=== PATIENT | female | born 1995 | race Caucasian/White ===

== ENCOUNTER → 2020-03-16 15:01 | Outpatient (CLI) | payer BC, SELFPAY ==
[2020-03-18 08:18] LABS: Hep A Ab, IgM Negative (Negative); Hepatitis B Core Antibody IgM Negative (Negative); Hepatitis B Surface Antigen Negative (Negative)
[2020-03-18 11:47] LABS: HIV Screen 4th Generation wRfx Non Reactive (Non Reactive); Hepatitis C Antibody <0.1 s/co ratio (0.0-0.9); Rapid Plasma Reagin Ab Titer Non Reactive (NonRea<1:1)
== END ==
PROVIDERS: Visit Provider Obstetrics & Gynecology
DX: Z01.419 Encounter for gynecological examination (general) (routine) without abnormal findings (principal)
CPT/HCPCS: 36415; 80074; 86592; 86703; G0432

== ENCOUNTER 2020-05-01 18:27 | Emergency (ER) | payer BC, SELFPAY ==
[2020-05-01 18:28] VITALS: BP 113/69; PULSE 67; RESP 16; TEMP 36.9; O2SAT 98; BMI 22.3
--- NOTE | 2020-05-01 18:40 | HMH.EDGENADL ---
ED Disposition Clinical Impression: Kidney stone on left side Disposition: Home, Self-Care Condition on Discharge: Good Additional Instructions: Take meds as prescribed. Use ibuprofen always with food. Drink plenty of clear fluids. Use urine strainer. Immediate return if fever/chills, intractable nausea/vomiting, worsening pain, generalized malaise, or other new concerning symptoms. Prescriptions: Tamsulosin HCl [Flomax 0.4mg capsule] 0.4 mg PO HS 7 Days #7 cap Transmission Status: Pending to [facility] # Ondansetron [Zofran 4mg ODT] 4 mg PO TIDP PRN #12 tab PRN Reason: Nausea Transmission Status: Pending to [facility] # Referrals: Ghada Islas [Primary Care Provider] - - Critical Care Critical Care Time: No Attestation: On 05/01/20, the high probability of a clinically significant, sudden or life threatening deterioration of the following system(s) required my full and direct attention, intervention and personal management. The time I documented below is in addition to time spent performing reported procedures but includes the following listed in this critical care notation. Medical Decision Making - Medical Records Medical records reviewed: Yes: I reviewed the patient's medical records. - Ashok Inquiry Pt receiving controlled substance: No Vital Signs: 05/01/20 18:28 Temperature 98.5 F Temperature Source Oral Pulse Rate [Radial] 67 Respiratory Rate 16 Blood Pressure [Right Arm] 113/69 Blood Pressure Mean [Right Arm] 83 Blood Pressure Position [Right Arm] Sitting 02 Sat by Pulse Oximetry 98 Oxygen Delivery Method Room Air - Lab Data Lab Results 05/01/20 18:35: Urine Color Yellow, Urine Appearance Cloudy, Urine pH 6.0, Ur Specific [place] >= 1.030, Urine Protein 2+, Urine Glucose (UA) Negative, Urine Ketones 1+, Urine Blood 3+, Urine Nitrate Negative, Urine Bilirubin Negative, Urine Urobilinogen 0.2, Ur Leukocyte Esterase Negative, Urine RBC 50-100, Ur Squamous Epith Cells 5-10, Ur Renal Epithelial Cell 5-10 05/01/20 18:35: Urine HCG, Qual Negative 05/01/20 18:49: WBC 9.3, RBC 4.91, Hgb 15.2, Hct 45.1, MCV 91.9, MCH 30.9, MCHC 33.6, RDW 13.4, Plt Count 286, MPV 9.2, Neut % (Auto) 68.0, Lymph % (Auto) 27.6, [place] % (Auto) 3.4, Eos % (Auto) 0.5, Baso % (Auto) 0.6, Neut # (Auto) 6.3, Lymph # (Auto) 2.6, [place] # (Auto) 0.3, Eos # (Auto) 0.0, Baso # (Auto) 0.1 05/01/20 18:49: Sodium 137, Potassium 3.7, Chloride 100, Carbon Dioxide 24, Anion Gap 16.7 H, BUN 13, Creatinine 1.00, Estimated Creat Clear 81, Estimated GFR 69, Est GFR ( Amer) 83, Glucose 123 H, Calcium 10.5 H, Total Bilirubin 1.0, AST 36, ALT 27, Alkaline Phosphatase 80, Total Protein 9.2 H, Albumin 5.4 H, Globulin 3.8 H, Albumin/Globulin Ratio 1.4 Result diagrams: 05/01/20 18:49 05/01/20 18:49 Orders (Tests/Meds): ED MEDICATIONS Generic Name Dose Route Start Last Admin Trade Name Freq PRN Reason Stop Dose Admin Sodium Chloride 1,000 mls @ 999 mls/hr 05/01/20 19:00 05/01/20 18:53 Sod Chlor 0.9% 1000ml Bag IV 05/01/20 20:00 999 mls/hr .Q1H1M NGUYEN Administration Tamsulosin HCl 0.4 mg 05/01/20 21:00 Tamsulosin 0.4mg Capsule PO 05/31/20 20:59 HS NGUYEN Discontinued Medications Generic Name Dose Route Start Last Admin Trade Name Freq PRN Reason Stop Dose Admin Lactated Ringer's 1,000 mls @ 999 mls/hr 05/01/20 18:45 05/01/20 18:53 Lactated Ringer's 1000 Ml Bag IV 05/01/20 19:45 Not Given .Q1H1M NGUYEN Ketorolac Tromethamine 15 mg 05/01/20 18:44 05/01/20 18:52 Ketorolac 30mg/Ml Vial IV 05/01/20 18:45 15 mg ONCE ONE Administration Ondansetron HCl 4 mg 05/01/20 18:45 05/01/20 18:52 Ondansetron 4mg/2ml Vial IV 05/01/20 18:46 4 mg ONCE ONE Administration Medical Decision Narrative: Patient is a 24-year-old female with history of recurrent kidney stones presenting with left flank pain. On arrival, patient is rather well-appearing but s
[2020-05-01 18:50] LABS: Microscopic, Urine URINE MICROSCOPIC (MICROSCOPIC)
[2020-05-01 18:52] LABS: Appearance,Urine CLOUDY (Clear); Blood, Urine 3+ (Negative); Color,Urine YELLOW (Yellow); Glucose,Urine (UA) Negative (Negative); Ketones,Urine 1+ (Negative); Leukocyte Esterase,Urine Negative (Negative); Nitrate,Urine Negative (Negative); Protein,Urine 2+ (Negative); Specific Gravity, Urine >= 1.030 (1.005-1.030); Urobilinogen,Urine 0.2 EU/dl (0.2)
[2020-05-01 18:56] LABS: Urine Pregnancy, HCG Qual. Negative (Negative)
[2020-05-01 18:57] LABS: Bilirubin,Urine Negative (Negative)
[2020-05-01 18:58] LABS: RBC,Urine 50-100 #/hpf (0-3)
[2020-05-01 19:05] LABS: Basophils # 0.1 K/mm3 (0-0.2); Basophils % 0.6 % (0.1-2.0); Eosinophils % 0.5 % (0.1-12.0); Hematocrit 45.1 % (37.0-47.0); Hemoglobin 15.2 g/dL (12.2-16.2); Lymphocytes # 2.6 K/mm3 (0.7-4.5); Lymphocytes % 27.6 % (10-50); Mean Corpuscular HGB Conc 33.6 g/dL (31.8-35.4); Mean Corpuscular Hemoglobin 30.9 pg (27.0-31.2); Mean Corpuscular Volume 91.9 fl (81-99); Mean Platelet Volume 9.2 fl (7.4-10.4); Monocytes # 0.3 K/mm3 (0.1-1.0); Monocytes % 3.4 % (1.7-9.3); Neutrophils # 6.3 K/mm3 (1.8-7.8); Platelet Count 286 K/mm3 (142-424); Red Blood Count 4.91 M/mm3 (4.20-5.40); Red Cell Distribution Width 13.4 % (11.5-17.5); White Blood Count 9.3 K/mm3 (4.8-10.8)
[2020-05-01 19:12] LABS: Chloride 100 mmol/L (98-107)
[2020-05-01 19:15] LABS: Alanine Aminotransferase 27 U/L (12-78); Albumin Level 5.4 g/dl (3.5-5.0); Albumin/Globulin Ratio 1.4 (1.1-1.8); Alkaline Phosphatase 80 U/L (38-126); Anion Gap 16.7 mEq/L (5-15); Aspartate Amino Transferase 36 U/L (14-36); Blood Urea Nitrogen 13 mg/dl (7-17); Calcium 10.5 mg/dl (8.4-10.2); Carbon Dioxide 24 mmol/L (22.0-30.0); Creatinine Clearance Estimated 81 mL/min (50-200); Estimated Glomerular Filt Rate 69 ml/min (>60); GFR (African American) 83 ML/MIN (>60); Globulin 3.8 g/dL (1.3-3.2); Glucose 123 mg/dl (74-100); Potassium 3.7 mmoL/L (3.5-5.1); Sodium 137 mmol/L (136-145); Total Protein,Serum 9.2 g/dl (6.3-8.2)
[2020-05-01 19:52] VITALS: BP 117/80; PULSE 81; RESP 14; O2SAT 98
[2020-05-01 20:25] VITALS: BP 117/85; PULSE 75; RESP 15; TEMP 36.7; O2SAT 98
== END 2020-05-01 20:33 | disposition home or self-care (01) ==
PROVIDERS: Emergency Provider Emergency Medicine; PCP Family Medicine
DX: N20.0 Calculus of kidney (principal)
CPT/HCPCS: 80053; 81001; 81025; 85025; 96365; 96366; 96375; 99283; J2405

== ENCOUNTER 2020-10-17 21:34 | Emergency (ER) | payer BC, SELFPAY ==
[2020-10-17 21:43] VITALS: BP 113/77; PULSE 94; RESP 17; TEMP 36.9; O2SAT 99; BMI 22.3
--- NOTE | 2020-10-17 21:47 | CT_ITS ---
PROCEDURE INFORMATION: Exam: CT Abdomen And Pelvis Without Contrast Exam date and time: 10/17/2020 9:47 PM Age: 25 years old Clinical indication: Abdominal pain; Patient HX: Left flank pain, HX of kidney stones; Additional info: Abd pain TECHNIQUE: Imaging protocol: Computed tomography of the abdomen and pelvis without contrast. Total images: 277 Radiation optimization: All CT scans at this facility use at least one of these dose optimization techniques: automated exposure control; mA and/or kV adjustment per patient size (includes targeted exams where dose is matched to clinical indication); or iterative reconstruction. COMPARISON: No relevant prior studies available. FINDINGS: Lungs: Granulomatous calcification in the right middle lobe. Lung bases otherwise clear. Heart: Heart size normal. Mediastinal space: The visualized distal esophagus is normal. Liver: Normal contour. No mass lesions. No intrahepatic biliary ductal dilatation. Gallbladder and bile ducts: The gallbladder is contracted but otherwise unremarkable. Nondilated biliary system. Pancreas: Normal. No inflammatory changes or ductal dilation. Spleen: Normal. No splenomegaly. Adrenal glands: Normal. No adrenal mass. Kidneys and ureters: No acute abnormalities. No hydronephrosis or hydroureter. No urinary tract stones are identified. Stomach and bowel: The stomach is unremarkable. The small bowel is nondilated with no gross abnormality. There is a moderate amount of stool distributed throughout the colon suggesting constipation. Appendix: The appendix is normal in caliber and demonstrates no evidence of appendicitis. Intraperitoneal space: No free fluid or air. Vasculature: No acute process. No abdominal aortic aneurysm. Lymph nodes: No adenopathy. Urinary bladder: The urinary bladder is largely contracted without gross abnormality. Reproductive: Unremarkable as visualized. Bones/joints: No acute osseous abnormalities. Soft tissues: Unremarkable. IMPRESSION: 1. No urolithiasis or hydronephrosis. 2. Moderate stool throughout the colon suggesting constipation.
[2020-10-17 22:16] LABS: Microscopic, Urine URINE MICROSCOPIC (MICROSCOPIC)
[2020-10-17 22:20] LABS: Appearance,Urine SL CLOUDY (Clear); Bilirubin,Urine Negative (Negative); Blood, Urine TRACE-L (Negative); Color,Urine DK YELLOW (Yellow); Glucose,Urine (UA) Negative (Negative); Ketones,Urine TRACE (Negative); Leukocyte Esterase,Urine Negative (Negative); Nitrate,Urine Negative (Negative); Protein,Urine Negative (Negative); Specific Gravity, Urine 1.025 (1.005-1.030); Urobilinogen,Urine 0.2 EU/dl (0.2)
[2020-10-17 22:22] LABS: Urine Pregnancy, HCG Qual. Negative (Negative)
[2020-10-17 22:24] LABS: Basophils % 0.5 % (0.1-2.0); Eosinophils # 0.1 K/mm3 (0.0-0.4); Hematocrit 41.4 % (37.0-47.0); Hemoglobin 14.3 g/dL (12.2-16.2); Lymphocytes # 2.6 K/mm3 (0.7-4.5); Lymphocytes % 36.7 % (10-50); Mean Corpuscular HGB Conc 34.5 g/dL (31.8-35.4); Mean Corpuscular Hemoglobin 30.7 pg (27.0-31.2); Monocytes # 0.5 K/mm3 (0.1-1.0); Monocytes % 6.9 % (1.7-9.3); Neutrophils # 3.9 K/mm3 (1.8-7.8); Neutrophils % 54.9 % (37.0-80.0); Platelet Count 229 K/mm3 (142-424); Red Blood Count 4.65 M/mm3 (4.20-5.40); Red Cell Distribution Width 13.1 % (11.5-17.5)
[2020-10-17 22:27] LABS: Alanine Aminotransferase 20 U/L (12-78); Albumin Level 4.7 g/dl (3.5-5.0); Albumin/Globulin Ratio 1.5 (1.1-1.8); Alkaline Phosphatase 64 U/L (38-126); Amylase 114 U/L (30-110); Aspartate Amino Transferase 30 U/L (14-36); Bilirubin,Total 0.8 mg/dl (0.2-1.3); Blood Urea Nitrogen 16 mg/dl (7-17); Calcium 9.5 mg/dl (8.4-10.2); Carbon Dioxide 28 mmol/L (22.0-30.0); Creatinine Clearance Estimated 73 mL/min (50-200); Estimated Glomerular Filt Rate 61 ml/min (>60); GFR (African American) 74 ML/MIN (>60); Globulin 3.1 g/dL (1.3-3.2); Glucose 101 mg/dl (74-100); Lipase 145 U/L (23-300); Potassium 3.6 mmoL/L (3.5-5.1); Sodium 140 mmol/L (136-145); Total Protein,Serum 7.8 g/dl (6.3-8.2)
[2020-10-17 22:30] LABS: Bacteria,Urine 1+ /lpf; Mucus,Urine 1+ /lpf; Squamous Epithelial Cell,Urine Occasional #/hpf (0-5); WBC,Urine Occasional #/hpf (0-3)
[2020-10-17 22:31] LABS: Calcium Oxalate Crystals,Urine 3+ /lpf
[2020-10-17 22:32] LABS: Anion Gap 10.6 mEq/L (5-15); Chloride 105 mmol/L (98-107)
[2020-10-17 22:49] VITALS: BP 119/73; PULSE 86; O2SAT 96
--- NOTE | 2020-10-17 23:03 | HMH.EDNVD ---
ED Disposition Clinical Impression: Renal colic on left side Disposition: Home, Self-Care Condition on Discharge: Good Instructions: DI for Acute Abdominal Pain Additional Instructions: fluids and see pcp for follow up and call for urine culture results Referrals: Juwan Islas MD [Primary Care Provider] - Lobo Canales MD [Staff Physician] - - Critical Care Critical Care Time: No Attestation: On 10/17/20, the high probability of a clinically significant, sudden or life threatening deterioration of the following system(s) required my full and direct attention, intervention and personal management. The time I documented below is in addition to time spent performing reported procedures but includes the following listed in this critical care notation. Medical Decision Making - Medical Records Medical records reviewed: Yes: I reviewed the patient's medical records. - Ashok Inquiry Pt receiving controlled substance: No Vital Signs: 10/17/20 21:43 10/17/20 22:49 Temperature 98.4 F Temperature Source Oral Pulse Rate 86 Pulse Rate [Right Brachial] 94 H Respiratory Rate 17 Blood Pressure 119/73 Blood Pressure [Right Arm] 113/77 Blood Pressure Mean [Right Arm] 89 Blood Pressure Source [Right Arm] Automatic Cuff Blood Pressure Position [Right Arm] Sitting 02 Sat by Pulse Oximetry 99 96 Oxygen Delivery Method Room Air - Lab Data Lab results reviewed: Yes: I reviewed the patient's lab results. Lab Results 10/17/20 22:00: Urine Color Dk yellow, Urine Appearance Sl cloudy, Urine pH 6.0, Ur Specific [place] 1.025, Urine Protein Negative, Urine Glucose (UA) Negative, Urine Ketones Trace, Urine Blood Trace-l, Urine Nitrate Negative, Urine Bilirubin Negative, Urine Urobilinogen 0.2, Ur Leukocyte Esterase Negative, Urine RBC 3-5, Urine WBC Occasional, Ur Squamous Epith Cells Occasional, Calcium Oxalate Crystal 3+, Urine Bacteria 1+, Urine Mucus 1+ 10/17/20 22:00: Urine HCG, Qual Negative 10/17/20 22:07: WBC 7.0, RBC 4.65, Hgb 14.3, Hct 41.4, MCV 89.0, MCH 30.7, MCHC 34.5, RDW 13.1, Plt Count 229, MPV 9.0, Neut % (Auto) 54.9, Lymph % (Auto) 36.7, [place] % (Auto) 6.9, Eos % (Auto) 1.0, Baso % (Auto) 0.5, Neut # (Auto) 3.9, Lymph # (Auto) 2.6, [place] # (Auto) 0.5, Eos # (Auto) 0.1, Baso # (Auto) 0.0 10/17/20 22:07: Sodium 140, Potassium 3.6, Chloride 105, Carbon Dioxide 28, Anion Gap 10.6, BUN 16, Creatinine 1.10 H, Estimated Creat Clear 73, Estimated GFR 61, Est GFR ( Amer) 74, Glucose 101 H, Calcium 9.5, Total Bilirubin 0.8, AST 30, ALT 20, Alkaline Phosphatase 64, Total Protein 7.8, Albumin 4.7, Globulin 3.1, Albumin/Globulin Ratio 1.5, Amylase 114 H, Lipase 145 Result diagrams: 10/17/20 22:07 10/17/20 22:07 Orders (Tests/Meds): ED MEDICATIONS Generic Name Dose Route Start Last Admin Trade Name Freq PRN Reason Stop Dose Admin Sodium Chloride 1,000 mls @ 999 mls/hr 10/17/20 22:30 10/17/20 22:21 Sod Chlor 0.9% 1000ml Bag IV 10/17/20 23:30 999 mls/hr .Q1H1M NGUYEN Administration Discontinued Medications Generic Name Dose Route Start Last Admin Trade Name Freq PRN Reason Stop Dose Admin Ketorolac Tromethamine 30 mg 10/17/20 22:16 10/17/20 22:23 Ketorolac 30mg/Ml Vial IV 10/17/20 22:17 30 mg ONCE ONE Administration ORDERS Category Date Time Status Urine Culture Stat Micro 10/17/20 23:29 Ordered - CT Data CT Scan: Abdomen, Pelvis Time Received: 23:[address] Reviewed: Yes: I have viewed the radiologist's interpretation Preliminary Findings: Normal/NAD Medical Decision Narrative: uncertain as to etiology of renal colic Nausea/Vomiting/Diarrhea HPI - General Chief complaint: Abdominal Pain Stated complaint: possible Kidney stones Time Seen by Provider: 10/17/20 22:00 Mode of Arrival: Family Vehicle Source of Information: Patient, Parent(s), Medical Record Limitations: No Limitations Description of Symptoms (Recalled from ER Triage Doc. by RN): pt rev
[2020-10-17 23:34] VITALS: BP 104/67; PULSE 78; RESP 15; TEMP 36.6; O2SAT 99
== END 2020-10-17 23:49 | disposition home or self-care (01) ==
PROVIDERS: Emergency Provider Emergency Medicine; PCP Family Medicine
DX: N23 Unspecified renal colic (principal); F41.8 Other specified anxiety disorders
CPT/HCPCS: 74176; 80053; 81001; 81025; 82150; 83690; 85025; 87086; 87088; 87186; 96365; 96375; 99283

== ENCOUNTER → 2021-05-30 10:49 | Outpatient (CLI) | payer BC, SELFPAY | PROVIDERS: Visit Provider Nurse Practitioner | DX: U07.1 COVID-19 (principal) | CPT/HCPCS: C9803; U0003; U0005 ==

== ENCOUNTER → 2021-06-03 12:48 | Outpatient (CLI) | payer BC, SELFPAY | PROVIDERS: Visit Provider Nurse Practitioner | DX: U07.1 COVID-19 (principal) | CPT/HCPCS: C9803; U0003; U0005 ==

== ENCOUNTER → 2021-06-26 11:00 | Outpatient (CLI) | payer BC, SELFPAY | PROVIDERS: Visit Provider Nurse Practitioner | DX: Z20.822 Contact with and (suspected) exposure to COVID-19 (principal) | CPT/HCPCS: C9803; U0003; U0005 ==

== ENCOUNTER 2022-12-20 18:06 | Emergency (ER) | payer OTHER, SELFPAY ==
[2022-12-20 18:07] VITALS: BP 120/87; PULSE 84; RESP 20; TEMP 36.7; O2SAT 97; BMI 22.3
--- NOTE | 2022-12-20 18:36 | CT_ITS ---
PROCEDURE INFORMATION: Exam: CT Abdomen And Pelvis With Contrast Exam date and time: 12/20/2022 7:56 PM Age: 27 years old Clinical indication: Abdominal pain; Flank; Left; Additional info: L flank pain, dysuria, reported double ureter TECHNIQUE: Imaging protocol: Computed tomography of the abdomen and pelvis with contrast. Radiation optimization: All CT scans at this facility use at least one of these dose optimization techniques: automated exposure control; mA and/or kV adjustment per patient size (includes targeted exams where dose is matched to clinical indication); or iterative reconstruction. Contrast material: ISOVUE; Contrast volume: 75 ml; Contrast route: IV; REPORTING DATA: Count of CT and Cardiac NM exams in prior 12 months: This patient has received 0 known CTs and 0 known cardiac nuclear medicine studies in the 12 months prior to the current study. COMPARISON: CT ABDOMEN PELVIS WO CON 10/17/2020 10:31 PM FINDINGS: Liver: Normal. No mass. Gallbladder and bile ducts: Normal. No calcified stones. No ductal dilation. Pancreas: Normal. No ductal dilation. Spleen: Normal. No splenomegaly. Adrenal glands: Normal. No mass. Kidneys and ureters: Duplex left collecting system Stomach and bowel: Moderate to marked stool burden Appendix: No evidence of appendicitis. Intraperitoneal space: Unremarkable. No free air. No significant fluid collection. Vasculature: Unremarkable. No abdominal aortic aneurysm. Lymph nodes: Unremarkable. No enlarged lymph nodes. Urinary bladder: Unremarkable as visualized. Reproductive: Unremarkable as visualized. Bones/joints: Unremarkable. No acute fracture. Soft tissues: Unremarkable. IMPRESSION: 1. No evidence of acute abnormality. 2. Please see above report for discussion of nonacute findings.
--- NOTE | 2022-12-20 18:39 | HMH.EDGENADL ---
Discharge Plan Disposition Patient Disposition: Home, Self-Care Condition: Good Chief Complaint: Abdominal Pain Prescriptions Prescriptions: No Action levonorgestrel-ethinyl estrad [Aviane] 0.1-20 mg-mcg tablet 1 tab PO DAILY Qty: 28 11RF tamsulosin 0.4 MG capsule 0.4 mg PO HS 7 Days Qty: 7 0RF ondansetron 4 MG tablet,disintegrating 4 mg PO TIDP PRN (Reason: Nausea) Qty: 12 0RF Referrals Follow up/Referrals: Juwan Islas MD [Primary Care Provider] - See instructions Activity Restrictions/Add. Instructions Additional Instructions/Restrictions: At this time is felt you are safe to be discharged home. If new or worsening symptoms please do not hesitate to return the emergency department. Please follow-up with your urologist as you are able for continued evaluation. Clinical Impressions Clinical Impression: Acute flank pain Discharge ED Provider: Daniel Avila General Adult HPI General Chief complaint: Abdominal Pain Stated complaint: back pain Time Seen by Provider: 12/20/22 18:21 Mode of Arrival: Ambulatory Source of Information: Patient Limitations: No Limitations Description of Symptoms (Recalled from ER Triage Doc. by RN): left flank pain started today but has had several episodes of same thing in the past with nothing ever being diagnosed. pt complains of nausea with the pain but no urinary characteristics History of Present Illness HPI narrative: Patient is a 27-year-old female with past medical history of episodic left flank pain, reported double ureter unknown side who presents to the emergency department for evaluation of flank pain. Onset was acute, 30 minutes to 1 hour prior to arrival, left-sided, back radiating into her left groin. Patient is currently on her menstrual cycle. Denies vomiting, chest pain, other acute complaints at this time. Patient states that she has been worked up for this before and people suspected that it is ureteral stones that she has passed prior to evaluation as they do not find any evidence of kidney stone on imaging. She has noticed that each time she has had this pain she has been on her menstrual cycle. 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 however does not have frequent UTIs as an adult Related Data Previous Rx's Medication Instructions Recorded levonorgestrel-ethinyl estradiol 1 tab PO DAILY #28 tabs 03/25/20 0.1 mg-20 mcg tablet (Aviane) ondansetron 4 mg disintegrating 4 mg PO TIDP PRN Nausea #12 tabs 05/01/20 tablet tamsulosin 0.4 mg capsule 0.4 mg PO HS 7 days #7 caps 05/01/20 Allergies Allergy/AdvReac Type Severity Reaction Status Date / Time No Known Allergies Allergy Verified 03/16/20 14:08 [facility] Disclaimer: The information contained in this section may have been updated after the patient was seen, as this information can be updated by other users. Social History Smoking Status: Never smoker alcohol intake: never substance use type: denies use current occupational status: other Travel in the last 8 weeks: None household members: other ROS Obtained: Yes Systems reviewed as appropriate & no additional complaints except as documented Physical Exam General General appearance: alert and in no apparent distress Head Head exam: atraumatic and normocephalic Eye Eye exam: Present PERRL and EOMI ENT ENT exam: Present mucous membranes moist Neck Neck exam: Present normal inspection Chest Chest inspection: Present normal inspection and symmetric chest wall rise Respiratory Respiratory exam: Present normal lung sounds bilaterally; Absent respiratory distress Cardiovascular Cardiovascular exam: Present regular rate and normal rhythm Abdominal Exam Abdominal exam: Present soft; Absent tenderness Extremities Exam Extremities exam: Present normal inspection Neurological Exam Neurological exam: Present alert Psychiatric Psychiatric exam: Present normal affect Skin Skin exam: Present warm and dry
[2022-12-20 19:09] LABS: Microscopic, Urine URINE MICROSCOPIC (MICROSCOPIC)
[2022-12-20 19:30] LABS: Basophils % 0.6 % (0.1-2.0); Eosinophils # 0.1 K/mm3 (0.0-0.4); Eosinophils % 1.1 % (0.1-12.0); Hematocrit 47.1 % (37.0-47.0); Hemoglobin 15.6 g/dL (12.2-16.2); Lymphocytes # 2.4 K/mm3 (0.7-4.5); Mean Corpuscular HGB Conc 33.1 g/dL (31.8-35.4); Mean Corpuscular Volume 90.7 fl (81-99); Mean Platelet Volume 10.1 fl (7.4-10.4); Monocytes # 0.4 K/mm3 (0.1-1.0); Monocytes % 5.2 % (1.7-9.3); Neutrophils # 4.2 K/mm3 (1.8-7.8); Neutrophils % 59.1 % (37.0-80.0); Platelet Count 235 K/mm3 (142-424); Red Blood Count 5.19 M/mm3 (4.20-5.40); Red Cell Distribution Width 12.9 % (11.5-17.5); White Blood Count 7.1 K/mm3 (4.8-10.8)
[2022-12-20 19:35] LABS: Alanine Aminotransferase 23 U/L (12-78); Albumin Level 5.7 g/dl (3.5-5.0); Albumin/Globulin Ratio 1.3 (1.1-1.8); Alkaline Phosphatase 72 U/L (38-126); Anion Gap 16.7 mEq/L (5-15); Aspartate Amino Transferase 32 U/L (14-36); Bilirubin,Total 0.9 mg/dl (0.2-1.3); Blood Urea Nitrogen 13 mg/dl (7-17); Calcium 10.5 mg/dl (8.4-10.2); Carbon Dioxide 25 mmol/L (22.0-30.0); Chloride 103 mmol/L (98-107); Creatinine Clearance Estimated 99 mL/min (50-200); Estimated Glomerular Filt Rate 87 ml/min (>60); GFR (African American) 105 ML/MIN (>60); Globulin 4.4 g/dL (1.3-3.2); Glucose 111 mg/dl (74-100); Lipase 124 U/L (23-300); Potassium 3.7 mmoL/L (3.5-5.1); Sodium 141 mmol/L (136-145); Total Protein,Serum 10.1 g/dl (6.3-8.2)
[2022-12-20 19:37] LABS: Appearance,Urine CLEAR (Clear); Blood, Urine 3+ (Negative); Color,Urine YELLOW (Yellow); Glucose,Urine (UA) Negative (Negative); Ketones,Urine Negative (Negative); Leukocyte Esterase,Urine Negative (Negative); Nitrate,Urine Negative (Negative); Protein,Urine 1+ (Negative); Specific Gravity, Urine >= 1.030 (1.005-1.030)
[2022-12-20 19:40] LABS: HCG Qualitative, Serum Negative (Negative)
[2022-12-20 19:42] LABS: Bilirubin,Urine 1+ (Negative)
[2022-12-20 20:08] LABS: Bacteria,Urine Trace /lpf; RBC,Urine 20-50 #/hpf (0-3); WBC,Urine Occasional #/hpf (0-3)
[2022-12-20 20:30] VITALS: BP 101/61; PULSE 90; O2SAT 100
[2022-12-20 20:58] VITALS: BP 101/61; PULSE 86; RESP 18; TEMP 36.7; O2SAT 98
== END 2022-12-20 21:03 | disposition home or self-care (01) ==
PROVIDERS: Emergency Provider Emergency Medicine; PCP Family Medicine
DX: R10.2 Pelvic and perineal pain (principal); M54.9 Dorsalgia, unspecified
CPT/HCPCS: 74177; 80053; 81001; 83690; 84703; 85025; 96361; 96374; 99285; Q9967